=== PATIENT | female | born 1955 | race Caucasian/White ===

== ENCOUNTER 2019-09-17 10:13 | Outpatient (CLI) | payer BC, SELFPAY ==
--- NOTE | 2019-09-17 10:19 | ECG_ITS ---
Measurements Intervals [place] Rate: 77 P: 32 OR: 137 QRS: -30 QRSD: 80 T: 13 QT: 364 QTc: 414 Interpretive Statements SINUS RHYTHM VOLTAGE CRITERIA FOR LVH POOR R WAVE PROGRESSION, ANTERIOR LEADS BORDERLINE T WAVE ABNORMALITY- ANTERIOR LEADS BORDERLINE ECG Electronically Signed On 09-17-2019 16:19:53 CDT by Juan Carlos Dinh D.O.
[2019-09-17 10:51] LABS: Blood Urea Nitrogen 17 mg/dL (7-17); Calcium 9.5 mg/dL (8.4-10.2); Carbon Dioxide 32 mmol/L (22-30); Chloride 101 mmol/L (98-107); Estimated Glomerular Filt Rate > 60; Glucose 101 mg/dL (65-105); Sodium 140 mmol/L (137-145)
== END 2019-09-17 10:14 | disposition home or self-care (01) ==
PROVIDERS: Anesthesiology; PCP Internal Medicine; Visit Provider Obstetrics & Gynecology
DX: Z01.818 Encounter for other preprocedural examination (principal); N95.0 Postmenopausal bleeding; I10 Essential (primary) hypertension
CPT/HCPCS: 36415; 80048; 86850; 86900; 86901; 93005

== ENCOUNTER 2019-09-20 01:30 | Outpatient (CLI) | payer BC, SELFPAY ==
[2019-09-20 16:16] LABS: SARS-CoV-2 RNA PCR Negative
== END 2019-09-20 01:31 | disposition home or self-care (01) ==
LOC: ANHCOVIDDT 01:31
PROVIDERS: PCP Internal Medicine; Visit Provider Obstetrics & Gynecology
DX: Z01.812 Encounter for preprocedural laboratory examination (principal); Z11.59 Encounter for screening for other viral diseases
CPT/HCPCS: 87635; C9803; U0003

== ENCOUNTER 2019-09-22 01:14 | Day surgery (SDC) | payer BC, SELFPAY ==
[2019-09-10 11:19] VITALS: BMI 31.1
--- NOTE | 2019-09-21 11:09 | WPDANESEPPF ---
Anes - Initial Pre Proc Eval Procedure: Operation Date: 09/22/19 12:00 Proposed Procedures p Robotic Assisted Total Laparoscopic Hysterectomy With Bilateral Salpingo-Oophorectomy - Eduar Jarrell MD Date/Time: 09/21/19 11:09 Surgeon: Eduar Jarrell MD Pre Op Diagnosis: Post Menopausal Bleeding Patient Data Age: 64 Gender: F Height: 1.57 m Weight: 77.11 kg Allergies Allergy/AdvReac Type Severity Reaction Status Date / Time No Known Allergies Allergy Mild Unverified 09/10/19 11:20 Home Medications Medication Instructions Recorded Confirmed Type Ca carb-D3-mag [id number] 1 tablet PO DAILY 09/10/19 09/10/19 History [Caltrate + D3 Plus Minerals] armodafinil 150 mg PO DAILY 09/10/19 09/10/19 History atorvastatin 10 mg PO DAILY 09/10/19 09/10/19 History telmisartan-hydrochlorothiazid 1 tablet PO DAILY 09/10/19 09/10/19 History Patient hx anesthesia problems: none Family hx anesthesia problems: none [facility] Past Medical History Medical History (Updated 09/21/19 @ 11:09 by Marcial Spence DO) Hyperlipidemia Hypertension Social History Social History Smoking status: Never smoker Spiritual care concerns: No Anes - Eval Final PreProcedure Day of Procedure 09/21/19 11:09 Patient weight: obese Heart: regular rate and rhythm Lungs: clear to auscultation and normal air movement Airway: Mallampati scale class III Neurological: alert and oriented Last oral intake: >/= 8 hours ASA classification: III Emergent: no Anesthetic plan: proceed Anesthesia type and monitoring: general ETT and standard monitoring Informed Consent: The patient's anesthetic plan and its attendant risks and benefits were discussed with the patient/family/POA. Questions were solicited and answers provided to the satisfaction of the patient/family/POA.
[2019-09-22] VITALS (15 sets, daily range): BP systolic 87–129; BP diastolic 52–75; PULSE 56–98; RESP 14–20; TEMP 36.2–36.8; O2SAT 89–100
[2019-09-22] MEDS: ACETAMINOPHEN 500 MG TABLET 1000 MG PO (10:48)
[2019-09-22] MEDS: LACTATED RINGERS 1,000 ML 30 ML IV CONT ×2 (11:01→14:37)
[2019-09-22] MEDS: KETOROLAC 15 MG/ML VIAL (*BKC) IV PUSH (11:03)
--- NOTE | 2019-09-22 11:55 | PM.IMHP ---
H&P: HPI History of Present Illness Date/Time: 09/22/19 11:55 Chief complaint: Post Menopausal Bleeding Narrative: Lindy Gonzalez is a 64 year old female Presents for definitive therapy of fibroid uterus and postmenopausal bleeding. Has had multiple D and C's over the past few years to irregular vaginal bleeding none have shown any abnormalities though of the cavity has been atrophic and irregular. Ultrasound has revealed fibroid uterus and therefore she does desire to proceed with the hysterectomy. Prior history of a midline incision and Pfannenstiel incision for 2 previous deliveries. We have discussed that these may cause issues with of visualization and may cause laparotomy but this point will attempt of laparoscopic treatment and surgical modality. Review of Systems Review of Systems: All systems reviewed & are unremarkable except as noted in HPI and below PMFSH Past Medical History Medical History Hyperlipidemia Hypertension Social History Social History Smoking status: Never smoker Spiritual care concerns: No Meds Home Medications and Allergies Home Medications Medication Instructions Recorded Confirmed Type Ca carb-D3-mag [id number]-Zn 1 tablet PO DAILY 09/10/19 09/22/19 History [Caltrate + D3 Plus Minerals] armodafinil 150 mg PO DAILY 09/10/19 09/22/19 History atorvastatin 10 mg PO DAILY 09/10/19 09/22/19 History telmisartan-hydrochlorothiazid 1 tablet PO DAILY 09/10/19 09/22/19 History Allergies Allergy/AdvReac Type Severity Reaction Status Date / Time No Known Allergies Allergy Mild Unverified 09/10/19 11:20 Vital Signs Vital Signs - 24 hr 09/22/19 11:13 Temperature 36.7 C Pulse Rate 72 Blood Pressure 129/75 Pulse Oximetry 98 Exam Const: General: no acute distress Resp: Auscultation: clear to auscultation bilaterally Cardio: Rate: regular rate Rhythm: regular rhythm GI: GI Palp: Yes Soft to palpation : Other: Uterus slightly enlarged nontender Assessment and Plan Assessment and plan (1) Fibroid uterus: Code(s): D25.9 - Leiomyoma of uterus, unspecified Status: Acute (2) Postmenopausal bleeding: Code(s): N95.0 - Postmenopausal bleeding Status: Acute Additional Plan proceed with robotic assisted laparoscopic hysterectomy with bilateral salpingo-oophorectomies. Possibility of open laparotomy has already been discussed with the patient as well.
[2019-09-22] MEDS: ceFAZolin 2 GM/D5W 50 ML 2 GM/50 ML BAG IVPB (13:22)
--- NOTE | 2019-09-22 14:09 | PM.OP ---
Procedure Note - Brief Procedure Note - Brief Date of procedure: 09/22/19 Pre-op diagnosis: Post Menopausal Bleeding Uterine fibroids Post-op diagnosis: same Procedure performed: 1. Adhesiolysis 2. Robotic assisted laparoscopic hysterectomy with bilateral salpingo oophorectomy Description of procedure: patient prepped and draped usual manner for this procedure. Cervical instruments were placed uterine mobility in tension was then placed to the abdomen. Abdominal trocars were placed under direct visualization attached to the Maylin system and instruments were placed. At this point the cervical instruments did not appear to be in the uterine cavity so these were replaced and were found to be in the cavity. The bladder was then backfilled with 200cc of dye colored fluid to delineate the edges anatomically due to the extensive adhesions in this area. Also abdominal omental adhesions to the anterior abdominal wall were taken down sharply and bluntly. At this point bilaterally the infundibulopelvic ligaments were cauterized cut to take the blood supply to the ovaries away. Round ligament cauterized and cut bilaterally in the posterior leaf of the broad ligament was dissected. Bladder was then dissected off the anterior portion of the cervix with the bladder both filled and emptied. Once this was completely taken down and the bladder was again filled with 200cc of diet filled fluid with no spillage noted. After the uterine vessels are cauterized the cervix was then incised circumferentially and the uterus and tubes and ovaries were delivered into into the vagina. Cuff was closed using V lock suture from right of midline in the left angle to the midline. Irrigation was undertaken and there was no bleeding. The rest of placed empirically over the incision of the vaginal cuff. Gas was allowed to escape incisions proximally using 4 Monocryl and the patient was sent to recovery room in stable condition. Anesthesia: GETA Surgeon: Eduar Jarrell MD Estimated blood loss (mL): 10 Drains: No Packing: No Pathology: yes Complications: No immediate complications Condition: stable Disposition: PACU Findings: 1. Small fibroid uterus. 2. Omental adhesions to the anterior abdominal wall. 3. Dense adhesions of the Bladder to the anterior portion of the cervix.
--- NOTE | 2019-09-22 15:51 | PC.NURSE ---
Pt transferred to room 292 per stretcher. Alert and oriented x3.
[2019-09-22] MEDS: DEXTROSE 5%/LACTATED RINGERS 1,000 ML 125 ML IV CONT (16:17)
[2019-09-22] MEDS: KETOROLAC 30 MG/ML VIAL (*BKC) IV PUSH (16:17)
[2019-09-22] MEDS: SIMETHICONE 80 MG TAB.CHEW PO (17:27)
[2019-09-23] VITALS: BP 104/62; PULSE 57; RESP 14; TEMP 37; O2SAT 97
[2019-09-23] MEDS: KETOROLAC 30 MG/ML VIAL (*BKC) IV PUSH
[2019-09-23 04:45] VITALS: BP 93/50; PULSE 64; RESP 13; TEMP 37.4; O2SAT 96
[2019-09-23 05:18] LABS: Basophils Percent Auto 0.3 % (0.2-1.2); Eosinophils Percent Auto 0.1 % (0-4.4); Hematocrit 38.4 % (37.0-47.0); Hemoglobin 12.7 g/dL (12.0-15.0); Immature Granulocyte Absolute 0.06 K/mm3 (0.00-0.031); Immature Granulocyte Percent A 0.5 % (0-0.5); Lymphocytes Absolute Auto 1.51 K/mm3 (0.9-3.2); Lymphocytes Percent Auto 13.5 % (18.3-44.2); Mean Corpuscular HGB Conc 33.1 g/dl (32-36); Mean Corpuscular Hemoglobin 32.3 pg (26-34); Mean Corpuscular Volume 97.7 fl (80-100); Mean Platelet Volume 10.7 fl (7.4-10.4); Monocytes Absolute Auto 0.7 K/mm3 (0.1-0.6); Monocytes Percent Auto 6.4 % (2.6-8.5); Neutrophils Absolute Auto 8.9 K/mm3 (1.3-6.7); Neutrophils Percent Auto 79.2 % (45.5-73.1); Platelet Count Result 196 k/mm3 (150-375); Red Blood Count 3.93 M/mm3 (4.2-5.4); Red Cell Distribution Width 12.9 % (11.5-14.5); White Blood Count 11.2 K/mm3 (4.5-10.0)
[2019-09-23 07:45] VITALS: BP 96/55; PULSE 66; RESP 16; TEMP 37.3; O2SAT 97
[2019-09-23] MEDS: IBUPROFEN 600 MG TABLET PO (09:30)
--- NOTE | 2019-09-23 10:14 | P.PNAN_ITS ---
Anes - Prog Note Post-Op Date/Time: 09/23/19 10:14 Cardiovascular status: normal Respiratory status: normal Airway patency: baseline Mental status: baseline Post-Op hydration status: normal Vital Signs: Last Vital Signs Temp 37.3 C 09/23/19 07:45 Pulse 66 09/23/19 07:45 Resp 16 09/23/19 07:45 BP 96/55 L 09/23/19 07:45 Pulse Ox 97 09/23/19 07:45 I/O: Intake & Output 09/22/19 09/23/19 09/23/19 23:59 07:59 15:59 Intake Total 1200 Output Total 280 150 Balance 920 -150 Laboratory Tests 09/23/19 04:54 09/23/19 04:54 WBC 11.2 H RBC 3.93 L Hgb 12.7 Hct 38.4 MCV 97.7 MCH 32.3 MCHC 33.1 RDW 12.9 Plt Count 196 MPV 10.7 H Immature Gran % (Auto) 0.5 Neut % (Auto) 79.2 H Lymph % (Auto) 13.5 L [place] % (Auto) 6.4 Eos % (Auto) 0.1 Baso % (Auto) 0.3 Lymph # (Auto) 1.51 [place] # (Auto) 0.7 H Eos # (Auto) 0.0 Baso # (Auto) 0.0 Abs Immat Gran (auto) 0.06 H Absolute Neuts (auto) 8.9 H Absolute Nucleated RBC 0.0 Nucleated RBC % 0.0 Post-procedural complaints: none Patient Feedback: Patient satisfied with anesthetic care.
== END 2019-09-23 10:26 | disposition home or self-care (01) ==
LOC: ANHSURGERY 09:45 → ANHOB2 09-23 09:00
PROVIDERS: PCP Internal Medicine; Visit Provider Obstetrics & Gynecology
PROC: (CPT 58571; principal; 2019-09-22 12:00)
DX: N95.0 Postmenopausal bleeding (principal); N73.6 Female pelvic peritoneal adhesions (postinfective); D25.0 Submucous leiomyoma of uterus; I10 Essential (primary) hypertension; E78.5 Hyperlipidemia, unspecified; E66.9 Obesity, unspecified; Z68.31 Body mass index [BMI] 31.0-31.9, adult
CPT/HCPCS: 58571; S2900; 36415; 85025; 88307; 99199; A9270; J0690; J1100; J1170; J1885; J2250; J2370; J2405; J2704; J3010; J7030; J7120; J7121; Q9968

== ENCOUNTER 2021-11-23 00:14 | Day surgery (SDC) | payer BC, SELFPAY ==
[2021-11-07 08:08] VITALS: BMI 32.0
[2021-11-23 06:55] VITALS: BP 144/89; PULSE 79; RESP 30; TEMP 36.6; O2SAT 100; BMI 32.5
[2021-11-23] MEDS: LACTATED RINGERS 1,000 ML 150 ML IV CONT (07:06)
--- NOTE | 2021-11-23 07:24 | PM.HPGS ---
History of Present Illness History of Present Illness Consent: Risks, benefits, and alternatives have been discussed and questions answered. Patient agrees to proceed with procedure. Chief complaint: neoplasm screening Narrative: Lindy Gonzalez is a 66 year old female referred for colon cancer screening. Her last colonoscopy was 10 years ago. Review of Systems Review of Systems: All systems reviewed & are unremarkable except as noted in HPI and below PMFSH Past Medical History Medical History (Updated 11/23/21 @ 07:25 by Thomas Nichols MD) Hyperlipidemia Hypertension Social History Social History Smoking status: Never smoker Alcohol intake: current Drinks per week: 1 Substance use type: does not use Living arrangements: with family Spiritual care concerns: No Meds Home Medications and Allergies Home Medications Medication Instructions Recorded Confirmed Type armodafinil 150 mg tablet 150 mg PO DAILY 09/10/19 11/23/21 History atorvastatin 10 mg tablet 10 mg PO DAILY 09/10/19 11/23/21 History calcium carb 300 mg-D3 800 1 tablet PO DAILY 09/10/19 11/23/21 History unit-mag ox 25 mg-copy chaser 0.5 mg-pedro luis-Zn tablet (Caltrate + D3 Plus Minerals) telmisartan 80 1 tablet PO DAILY 09/10/19 11/23/21 History mg-hydrochlorothiazide 25 mg tablet ibuprofen 600 mg tablet 600 mg PO Q6H PRN Cramping #30 tabs 09/23/19 11/23/21 Rx Allergies Allergy/AdvReac Type Severity Reaction Status Date / Time No Known Allergies Allergy Mild Verified 11/23/21 06:54 Vital Signs Vital Signs - 24 hr 11/23/21 06:55 Temperature 36.6 C Pulse Rate 79 Respiratory Rate 30 H Blood Pressure 144/89 H Pulse Oximetry 100 Oxygen Delivery Room Air Exam Const: General: alert Orientation/consciousness: patient oriented x3 Resp: Auscultation: clear to auscultation bilaterally Cardio: Rhythm: regular rhythm GI: GI Palp: Yes Soft to palpation and No Tenderness to palpation present (GI) Neuro: General: patient oriented x3 Assessment and Plan Assessment and plan (1) Colon cancer screening: Code(s): Z12.11 - Encounter for screening for malignant neoplasm of colon Status: Acute Assessment and Plan: Colonoscopy with possible biopsy or polypectomy or cautery or injection of substances.
--- NOTE | 2021-11-23 07:42 | WPDANESEPPF ---
Anes - Initial Pre Proc Eval Procedure: Operation Date: 11/23/21 08:00 Proposed Procedures p Screening Colonoscopy - Thomas Nichols MD Date/Time: 11/23/21 07:42 Surgeon: Thomas Nichols MD Pre Op Diagnosis: neoplasm screening Patient Data Age: 66 Gender: F Height: 1.6 m Weight: 83.5 kg Last Vital Signs Temp 97.9 F 11/23/21 06:55 Pulse 79 11/23/21 06:55 Resp 30 H 11/23/21 06:55 BP 144/89 H 11/23/21 06:55 Pulse Ox 100 11/23/21 06:55 O2 Del Method Room Air 11/23/21 06:55 Allergies Allergy/AdvReac Type Severity Reaction Status Date / Time No Known Allergies Allergy Mild Verified 11/23/21 06:54 Home Medications Medication Instructions Recorded Confirmed Type armodafinil 150 mg tablet 150 mg PO DAILY 09/10/19 11/23/21 History atorvastatin 10 mg tablet 10 mg PO DAILY 09/10/19 11/23/21 History calcium carb 300 mg-D3 800 1 tablet PO DAILY 09/10/19 11/23/21 History unit-mag ox 25 mg-epic kaleidoscope analyst 0.5 mg-pedro luis-Zn tablet (Caltrate + D3 Plus Minerals) telmisartan 80 1 tablet PO DAILY 09/10/19 11/23/21 History mg-hydrochlorothiazide 25 mg tablet ibuprofen 600 mg tablet 600 mg PO Q6H PRN Cramping #30 tabs 09/23/19 11/23/21 Rx Patient hx anesthesia problems: none Family hx anesthesia problems: none Results Review: All pre-operative results and documents have been reviewed as part of the pre-operative evaluation. [facility] Past Medical History Medical History (Updated 11/23/21 @ 07:25 by Thomas Nichols MD) Hyperlipidemia Hypertension Social History Social History Smoking status: Never smoker Alcohol intake: current Drinks per week: 1 Substance use type: does not use Living arrangements: with family Spiritual care concerns: No Anes - Eval Final PreProcedure Day of Procedure 11/23/21 07:42 Patient weight: obese Heart: regular rate and rhythm Lungs: clear to auscultation Airway: Mallampati scale class II Neurological: alert and oriented Last oral intake: >/= 8 hours ASA classification: III Emergent: no Anesthetic plan: proceed Anesthesia type and monitoring: general GIVS and standard monitoring Results Review: All pre-operative results and documents have been reviewed as part of the pre-operative evaluation. Informed Consent: The patient's anesthetic plan and its attendant risks and benefits were discussed with the patient/family/POA. Questions were solicited and answers provided to the satisfaction of the patient/family/POA.
[2021-11-23 08:10] VITALS: BP 114/71; PULSE 67; RESP 30; O2SAT 96
[2021-11-23 08:20] VITALS: BP 107/71; PULSE 69; RESP 30; O2SAT 100
[2021-11-23 08:26] VITALS: BP 124/80; PULSE 71; RESP 30; O2SAT 99
== END 2021-11-23 08:38 | disposition home or self-care (01) ==
PROVIDERS: PCP Internal Medicine; Visit Provider Internal Medicine Gastroenterology
PROC: 0DJD8ZZ Inspection of Lower Intestinal Tract, Via Natural or Artificial Opening Endoscopic (ICD-10-PCS; CPT 45378; principal; 2021-11-23 08:00)
DX: Z12.11 Encounter for screening for malignant neoplasm of colon (principal); D12.5 Benign neoplasm of sigmoid colon; K64.8 Other hemorrhoids; K57.30 Diverticulosis of large intestine without perforation or abscess without bleeding; E78.5 Hyperlipidemia, unspecified; I10 Essential (primary) hypertension; E66.9 Obesity, unspecified; Z68.32 Body mass index [BMI] 32.0-32.9, adult
CPT/HCPCS: 45385; 88305; J2704; J7120

== ENCOUNTER 2023-12-29 00:51 | Day surgery (SDC) | payer MEDICARE, SELFPAY ==
[2023-12-17 08:50] VITALS: BMI 34.7
[2023-12-29 09:31] VITALS: BP 158/75; PULSE 80; RESP 16; TEMP 36.3; O2SAT 98; BMI 35.0
[2023-12-29] MEDS: LACTATED RINGERS 1,000 ML 150 ML IV CONT (09:37)
--- NOTE | 2023-12-29 10:47 | PM.IMHP ---
H&P: HPI History of Present Illness Date/Time: 12/29/23 10:47 Chief Complaint: Dysphagia Narrative: the patient has been suffering from dysphagia to solids and liquids for the past 3 years. There is no unintentional weight loss, chest pain or Regurgitation. Sometimes she feels like her own saliva is difficult to swallow. Review of Systems Review of Systems: All systems reviewed & are unremarkable except as noted in HPI and below PMFSH Past Medical History Medical History (Updated 12/29/23 @ 10:48 by Van Leroy MD) Bladder cancer Frequent headaches History of endometrial biopsy 05/19/03 hscope EMB--proliferative endometrium, suggestive of endometrial polyp Hyperlipidemia Hypertension Narcolepsy Screening mammogram for high-risk patient Sleep apnea Surgical History Surgical History History of 05/19/83 primary c/s 08/17/88 repeat c/s History of cholecystectomy History of dilation and curettage 03/20/17 hscope d&c--postmenopausal bleeding, atrophic endometrial cavity, endometrial fibroids 12/24/18 hscope d&c--postmenopausal bleeding History of elbow surgery (07/18/08) (R) elbow tendonitis History of endometrial ablation 07/06/03 hscope Novasure endometrial ablation--menometrorrhagia, dysmenorrhea, uterine fibroids History of robot-assisted laparoscopic hysterectomy (09/22/19) RA TL w/BSO--postmenopausal bleeding Family History Family History Sibling Heart disease Sister Seizure disorder brother Father Diabetes mellitus Hypertension Mother Kidney disease Grandparent Cerebrovascular accident maternal grandmother Social History Social History (Updated 01/27/23 @ 08:32 by GARRICK Rascon) Smoking status: Never smoker Alcohol intake: current Alcohol use details: 2 month Substance use: never Substance use type: does not use Lack of Transportation: No Lack of Food: Never True Current Housing: I Have Housing Concerned About Future Housing: No Difficulty Paying Gas/Electric Bills: No Difficulty Paying for Meds: No Currently Unemployed: No Education: Associate Degree Difficulty w/ Childcare or Family Care: No Living arrangements: with family Additional living arrangements comments: 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 Gender identity (if verbalized by the patient): Female Sexual Orientation (if Verbalized by the Patient): Straight or Heterosexual Spiritual care concerns: No Meds Home Medications and Allergies Home Medications Medication Instructions Recorded Confirmed Type calcium 300 mg-D3 20 mcg-magnesium 1 tablet PO DAILY 09/10/19 12/29/23 History 25 mg-coppr 0.5 [id number] tablet (Caltrate-D3 Plus Minerals) telmisartan 80 1 tablet PO DAILY 09/10/19 12/29/23 History mg-hydrochlorothiazide 25 mg tablet omeprazole 40 mg capsule,delayed 40 mg PO DAILY 01/27/23 12/29/23 History release atorvastatin 20 mg tablet 20 mg PO DAILY 12/17/23 12/29/23 History Allergies Allergy/AdvReac Type Severity Reaction Status Date / Time No Known Allergies Allergy Mild Verified 12/29/23 09:29 Vital Signs Vital Signs - 24 hr 12/29/23 09:31 Temperature 97.3 F L Pulse Rate 80 Respiratory Rate 16 Blood Pressure 158/75 H Pulse Oximetry 98 Oxygen Delivery Room Air Exam Const: General: cooperative and healthy appearing Resp: Effort & Inspection: normal respiratory effort and able to speak in complete sentences Auscultation: clear to auscultation bilaterally Cardio: Rate: regular rate Rhythm: regular rhythm GI: Inspection: normal to inspection GI Palp: No No hepatosplenomegaly present Auscultation: normal bowel sounds Rectal Exam: deferred Skin: General skin exam: normal color Psych: Appearance: grossly normal Mental Status: mental status grossly normal Assessment and Plan Assessment and plan (1) Dysphagia: Code(s): R13.10 - Dysphagia, unspecified Status: Acute Assessment and Plan: The patient is deemed a good candidate for the procedure. Consent signed. Will proceed.
--- NOTE | 2023-12-29 10:50 | WPDANESEPPF ---
Anes - Initial Pre Proc Eval Procedure: Operation Date: 12/29/23 11:00 Proposed Procedures p Esophagogastroduodenoscopy - Van Leroy MD Date/Time: 12/29/23 10:50 Surgeon: Van Leroy MD Pre Op Diagnosis: dysphagia Pre Op Diagnosis: dysphagia Patient Data Age: 68 Gender: F Height: 1.57 m Weight: 86.9 kg Last Vital Signs Temp 36.3 C L 12/29/23 09:31 Pulse 80 12/29/23 09:31 Resp 16 12/29/23 09:31 BP 158/75 H 12/29/23 09:31 Pulse Ox 98 12/29/23 09:31 O2 Del Method Room Air 12/29/23 09:31 Allergies Allergy/AdvReac Type Severity Reaction Status Date / Time No Known Allergies Allergy Mild Verified 12/29/23 09:29 Home Medications Medication Instructions Recorded Confirmed Type calcium 300 mg-D3 20 mcg-magnesium 1 tablet PO DAILY 09/10/19 12/29/23 History 25 mg-coppr 0.5 [id number] tablet (Caltrate-D3 Plus Minerals) telmisartan 80 1 tablet PO DAILY 09/10/19 12/29/23 History mg-hydrochlorothiazide 25 mg tablet omeprazole 40 mg capsule,delayed 40 mg PO DAILY 01/27/23 12/29/23 History release atorvastatin 20 mg tablet 20 mg PO DAILY 12/17/23 12/29/23 History Patient hx anesthesia problems: none Family hx anesthesia problems: none Results Review: All pre-operative results and documents have been reviewed as part of the pre-operative evaluation. COUNTS INCLUDE 234 BEDS AT THE [facility] Past Medical History Medical History Bladder cancer Frequent headaches History of endometrial biopsy 05/19/03 hscope EMB--proliferative endometrium, suggestive of endometrial polyp Hyperlipidemia Hypertension Narcolepsy Screening mammogram for high-risk patient Sleep apnea Surgical History Surgical History History of 05/19/83 primary c/s 08/17/88 repeat c/s History of cholecystectomy History of dilation and curettage 03/20/17 hscope d&c--postmenopausal bleeding, atrophic endometrial cavity, endometrial fibroids 12/24/18 hscope d&c--postmenopausal bleeding History of elbow surgery (07/18/08) (R) elbow tendonitis History of endometrial ablation 07/06/03 hscope Novasure endometrial ablation--menometrorrhagia, dysmenorrhea, uterine fibroids History of robot-assisted laparoscopic hysterectomy (09/22/19) RA TLH w/BSO--postmenopausal bleeding Family History Family History Sibling Heart disease Sister Seizure disorder brother Father Diabetes mellitus Hypertension Mother Kidney disease Grandparent Cerebrovascular accident maternal grandmother Social History Social History Smoking status: Never smoker Alcohol intake: current Alcohol use details: 2 month Substance use: never Substance use type: does not use Lack of Transportation: No Lack of Food: Never True Current Housing: I Have Housing Concerned About Future Housing: No Difficulty Paying Gas/Electric Bills: No Difficulty Paying for Meds: No Currently Unemployed: No Education: Associate Degree Difficulty w/ Childcare or Family Care: No Living arrangements: with family Additional living arrangements comments: 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 Gender identity (if verbalized by the patient): Female Sexual Orientation (if Verbalized by the Patient): Straight or Heterosexual Spiritual care concerns: No Anes - Eval Final PreProcedure Day of Procedure 12/29/23 10:50 Patient weight: obese Heart: regular rate and rhythm Lungs: clear to auscultation Airway: Mallampati scale class III Neurological: alert and oriented Last oral intake: >/= 8 hours ASA classification: III Emergent: no Anesthetic plan: proceed Anesthesia type and monitoring: general GIVS and standard monitoring Results Review: All pre-operative results and documents have been reviewed as part of the pre-operative evaluation. Informed Consent: The patient's anesthetic plan and its attendant risks and benefits were discussed with the patient/family/POA. Questions were solicited and answers provided to the satisfaction of the patient/family/POA.
[2023-12-29 11:12] VITALS: BP 120/73; PULSE 76; RESP 24; O2SAT 100
[2023-12-29 11:22] VITALS: BP 115/68; PULSE 74; RESP 20; O2SAT 100
[2023-12-29 11:32] VITALS: BP 129/76; PULSE 68; RESP 22; O2SAT 100
== END 2023-12-29 11:40 | disposition home or self-care (01) ==
PROVIDERS: PCP Internal Medicine; Visit Provider Internal Medicine Gastroenterology
PROC: 0DJ08ZZ Inspection of Upper Intestinal Tract, Via Natural or Artificial Opening Endoscopic (ICD-10-PCS; CPT 43235; principal; 2023-12-29 11:00)
DX: K22.2 Esophageal obstruction (principal); K29.30 Chronic superficial gastritis without bleeding; K21.00 Gastro-esophageal reflux disease with esophagitis, without bleeding; I10 Essential (primary) hypertension; E78.5 Hyperlipidemia, unspecified; G47.30 Sleep apnea, unspecified; Z85.51 Personal history of malignant neoplasm of bladder; E66.9 Obesity, unspecified; Z68.35 Body mass index [BMI] 35.0-35.9, adult
CPT/HCPCS: 43450; 43239; 88305; J2003; J2704; J7120

== ENCOUNTER 2024-04-14 09:45 | Outpatient (CLI) | payer MEDICARE, SELFPAY ==
--- NOTE | 2024-04-14 10:10 | ECG_ITS ---
Test Date: 2024-04-14 10:25:53 Measurements Intervals [place] Rate: 82 P: 33 VA: 139 QRS: -28 QRSD: 74 T: 52 QT: 355 QTc: 415 Interpretive Statements SINUS RHYTHM LOW QRS VOLTAGE IN PRECORDIAL LEADS POOR R WAVE PROGRESSION CONSIDER INFERIOR INFARCT, AGE INDETERMINATE BORDERLINE T WAVE ABNORMALITY- ANTERIOR LEADS BASELINE ARTIFACT- I, II, III, AVR, AVL, AVF, V1-V3 ABNORMAL ECG No previous ECG available for comparison Electronically Signed On 04-14-2024 10:29:58 [employer] by Juan Carlos Dinh D.O.
--- OUTSIDE RECORDS SUMMARY | 2024-04-14 10:55 | XMS_ITS | CONTINUITY OF CARE DOCUMENT ---
Author Name kiley cao Address Unknown Organization [facility] Address [address] [place] [address] Phone [phone] Care Team Providers Care [facility] Name Role Phone JOSH MO, ANNAMARIA Unavailable TEDDY MO, ELLIOT Pearson Unavailable INSURANCE PROVIDERS Payer name Policy type / Coverage type [place] red republican ID [facility] Blue [facility] [id number]
--- OUTSIDE RECORDS SUMMARY | 2024-04-14 10:55 | XMS_ITS | Data Portability ---
Author Organization [facility] Address [address] [address] Assessment No assessment recorded. Plan of Treatment Reminders Order Date Submit Date Provider Last Modified By Organization Details Last Modified Time Details Appointments None recorded. Lab None recorded. Referral None recorded. Procedures None recorded. Surgeries None recorded. Imaging None recorded. Medication Orders hydroxyzine HCl 25 mg tablet 2020 021 QUINN Not available 11:29:09 terbinafine HCl 250 mg tablet 2020 021 QUINN Not available 11:29:06 clotrimazol e 1 % topical cream 2020 021 QUINN Not available 11:29:03 Patient TargetsNo targets recorded. Patient InstructionsNo instructions recorded. Reason for Referral None Reported. Medical Equipment None Reported. Medications Name Sig Start Date Stop Date Status Note LastModified by Organization Details LastModified Time prednisone 10 mg tablet active Not Available Not Available Not Available atorvastatin 20 mg tablet active Not Available Not Available Not Available meloxicam 15 mg tablet TAKE 1 TABLET BY MOUTH EVERY DAY WITH MEALS FOR 21 DAYS active Not Available Not Available No t Available phenazopyrid ine 200 mg tablet TAKE 1 TABLET BY MOUTH THREE TIMES DAILY NEEDED active Not Available Not Available No t Available tramadol 50 mg tablet TAKE 1 TABLET BY MOUTH EVERY 6 HOURS NEEDED active Not Available Not Available No t Available terbinafine HCl 250 mg tablet Take 1 tablet every day by oral route as directed for 15 days. active Not Available Not Available No t Available hydroxyzine HCl 25 mg tablet Take 2 tablets every day by oral route as directed for 5 days. active Not Available Not Available Not Available ergocalcifer ol (vitamin D2) 1,250 mcg (50,000 unit) capsule active Not Available Not Available Not Available clotrimazole 1 % topical cream Apply 1 application twice a day by topical route as directed for 10 days. 2020 active Not Available Not Available Not Avai lable telmisartan 80 mg-hydrochlo rothiazide 25 mg tablet active Not Available Not Available Not Available armodafinil 150 mg tablet active Not Available Not Available Not Available Vitals Date Recorded Body height Heart rate Respiratory rate Body temperature Body mass index (BMI) Body weight Oxygen saturation Oxygen saturation in Arterial blood by Pulse oximetry Heart rate Systolic blood pressure Diastolic blood pressure Provider Name and Address Organization Details Last Updated DateTime 157.48 cm 88 /min 18 /min 98 [degF] 29.6 kg/m2 21565.9 6 g 99 % 99 % 88 /min 128 mm[Hg] 88 mm[Hg] Angel Henry DO [address],[facility] [address], [address] [place] - [facility] 11:41:54 Social History Question Answer Notes LastModified by Organizat ion Details LastModified Time What Is Your Level Of Alcohol Consumption? None [email or web address] Information not available 09/27/2020 What Type Of Diet Are You Following? Regular [email or web address] Information not available 09/27/2020 How Many Children Do You Have? 0 [email or web address] Information not available 09/27/2020 Do You Or Have You Ever Used Smokeless Tobacco? [id number] [email or web address] Information not available 09/27/2020 Sex: Unknown Functional Status None recorded. Mental Status None recorded. Family History Nothing Reported. Medical History No medical history recorded. Gynecological HistoryNo gynecological history recorded. Obstetrics History GPAL:G 0 P 0 0 0 0 Past Encounters Encounter ID Performer Location Encounter Start Date Encounter Closed Date Diagnosis/Indication Diagnosis SNOMED-CT Code Diagnosis ICD10 Code Diagnosis Note [id number] DO [facility] [address] [facility] [place] [address] 09/27/2020 11:14:09 10/17/2020 00:46:47 Tinea corporis 67713249 B35.4 Pruritic rash 78572257 L 28.2 Health Concerns Section Related Observation LastModified by Organization Detai ls LastModified Time None Recorded Concern Status LastModified by Organization Details LastModified Time None Recorded Advance Directives Directive None Recorded Payers Encounter Date Sequence Insurance Name Policy Number Policy Vásquez Covered Member ID Vásquez Member ID Guarantor Name 09/27/2020 1 [facility] [employer] ([place]) [id number] G Lindy Hustedt [id number] AB Lindy Hustedt Notes Date Note Type Note Provider Name and Address Organization Details Recorded Time 09/27/2020 text/html General Rash/Ski n LesionReported bypatient.Location:[facility] Quality:itchy;painfu l;red;multiple Severity:moderate; worsening Duration:has noted for <1 week Onset/Timing:gradual onset Context:no new detergents or skin products; no one else with similar rash;scratching Alleviating factors:nothing gives relief Aggravating factors:nothing makes it worse Associated Symptoms:no fever; no cold symptoms; no nausea; no vomiting; no diarrhea; no urinary symptoms Angel Henry, DO [address], [place], [address], [facility] - [facility] 09/27/2020 11:48:52 OBGyn Episode No OBEpisode recorded.
--- OUTSIDE RECORDS SUMMARY | 2024-04-14 10:55 | XMS_ITS | Patient Health Summary ---
Author Organization [facility] Address [address] [place] [address] Care Team Providers Care Tobacco Sampler Name Role Phone Akil Jara MD Primary Care Provider Note from [facility],non-owned Affiliates and Associated Physician Practices is amultiple site organization consisting of ambulatory clinics and hospital sitesin [place], [place] and [place]. This disclosure is being madepursuant to the Care Everywhere program and may not contain all information available regarding this patient. Last updated 17.[facility] Social History Tobacco Use Types Packs/Day Years Used Date Smoking Tobacco: Never Alcohol Use Standard Drinks/Week Comments Yes 0 (1 standard drink = 0.6 oz pur e alcohol) Sex and Gender Information Value Date Recorded Sex Assigned at Not on file Gender Identity Not on file Sexual Orientation Not on file Last Filed Vital Signs Vital Sign Reading Time Taken Comments Blood Pressure 174/99 05/13/2013 11:15 AM CDT Pulse 63 05/13/2013 11:15 AM CDT Temperature 37.2 C (98.9 F) 05/13/2013 9:29 AM CDT Respiratory Rate 19 05/13/2013 11:15 AM CDT Oxygen Saturation 97% 05/13/2013 11:15 AM CDT Inhaled Oxygen Concentration - - Weight 72.6 kg (160 lb) 05/13/2013 9:29 AM CDT Height 160 cm (5' 3 ) 05/13/2013 9:29 AM CDT Body Mass Index 28.34 05/13/2013 9:29 AM CDT Procedures * MRI ANGIO BRAIN ARTERIAL WO CONT(Performed 05/11/2013) * MRI BRAIN WO CONTRAST(Performed 05/11/2013) Results * MRI BRAIN WO CONTRAST (05/11/2013 1:53 PM CDT) Anatomical Region Laterality Modality Head Other Impressions 05/11/2013 4:58 PM CDT IMPRESSION: 1. No definite findings to explain loss of consciousness. Specifically no evidence of anoxic brain injury. 2. Fullness in the suprasellar cistern with sagging of the brainstem and cerebellar tonsils. This finding has been described in the setting of intracranial hypotension, correlate clinically with recent lumbar puncture and the presence of postural headaches. Alternatively, this patient could simply have an incidental Chiari one malformation. 3. Normal examination of the pilot point of P[place]. Dr. Rob discussed these findings with Dr. Denise on 05/11/2013 at 2:10 PM. This report was approved by Kathy Rob M.D. on 05/11/2013 3:02 PM . I, Dr. DANIAL OZUNA M.D. have personally reviewed and interpreted this examination/study. This report was electronically signed by DANIAL OZUNA M.D. on 05/11/2013 4:58 PM . Narrative 05/11/2013 4:58 PM CDT EXAMINATION: 1. Magnetic resonance imaging (MRI) of the brain without contrast 2. Magnetic resonance angiography (MRA) of the head without contrast HISTORY: Loss of consciousness TECHNIQUE: MRI of the brain was performed without contrast according to standard protocol. MRA of the edboqb-me-Ndirag was performed using a tyii-am-tjarkp technique without contrast. FINDINGS: No prior study is available for comparison. Brain: No evidence of acute or chronic hemorrhage is identified. No evidence of acute cerebral infarction is seen. The ventricles are of normal size, shape, and morphology. No mass effect or midline shift is seen. There are scattered hemispheric white matter FLAIR hyperintensities which are a nonspecific finding, but can be seen in the setting of chronic small vessel ischemic disease. The corpus callosum appears normal. 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 In addition, there is crowding in the suprasellar cistern, though it appears patent. Other than left maxillary sinus disease, the visualized portions of the orbits, paranasal sinuses, and mastoids appear normal. The calvarium and visualized cervical spine appear normal. Angiographic findings: The distal internal carotid arteries appear normal. The anterior and middle cerebral arteries appear normal. The left vertebral artery is dominant. The basilar artery and posterior cerebral arteries appear normal with absence of the left P1 segment. No aneurysms or intracranial stenoses are identified. Procedure Note Danial Ozuna MD - 05/17/2017 EXAMINATION: 1. Magnetic resonance imaging (MRI) of the brain without contrast 2. Magnetic resonance angiography (MRA) of the head without contrast HISTORY: Loss of consciousness TECHNIQUE: MRI of the brain was performed without contrast according tostandard protocol. MRA of the wokzel-zn-Crvmvp was performed using wlcim-xe-oeiosv technique without contrast. FINDINGS: No prior study is available for comparison. Brain: No evidence of acute or chronic hemorrhage is identified. No evidence ofacute cerebral infarction is seen. The ventricles are of normal size,shape, and morphology. No mass effect or midline shift is seen. There arescattered hemispheric white matter FLAIR hyperintensities which are a nonspecific finding, but can be seen inthe setting of chronic small vessel ischemic disease. The corpus callosumappears normal. 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 In addition, there is crowding in the suprasellarcistern, though it appears patent. Other than left maxillary sinus disease, the visualized portions of theorbits, paranasal sinuses, and mastoids appear normal. The calvarium andvisualized cervical spine appear normal. Angiographic findings: The distal internal carotid arteries appear normal. The anterior andmiddle cerebral arteries appear normal. The left vertebral artery isdominant. The basilar artery and posterior cerebral arteries appear normalwith absence of the left P1 segment. No aneurysms or intracranial stenoses are identified. IMPRESSION IMPRESSION: 1. No definite findings to explain loss of consciousness. Specifically noevidence of anoxic brain injury. 2. Fullness in the suprasellar cistern with sagging of the brainstem andcerebellar tonsils. This finding has been described in the setting ofintracranial hypotension, correlate clinically with recent lumbar punctureand the presence of postural headaches. Alternatively, this patient could simply have an incidentalChiari one malformation. 3. Normal examination of the pilot point of P[place]. Dr. Rob discussed these findings with Dr. Denise on 05/11/2013 at 2:10PM. This report was approved by Kathy Rob M.D. on 05/11/2013 3:[address] DANIAL Duarte M.D. have personally reviewed and interpreted thisexamination/study. This report was electronically signed by DANIAL OZUNA M.D. on 05/11/20134:58 PM . Peterson Denise MD MR ORDERABLES * MRI ANGIO BRAIN ARTERIAL WO CONT (05/11/2013 1:53 PM CDT) Anatomical Region Laterality Modality Head Other Impressions 05/11/2013 4:58 PM CDT IMPRESSION: 1. No definite findings to explain loss of consciousness. Specifically no evidence of anoxic brain injury. 2. Fullness in the suprasellar cistern with sagging of the brainstem and cerebellar tonsils. This finding has been described in the setting of intracranial hypotension, correlate clinically with recent lumbar puncture and the presence of postural headaches. Alternatively, this patient could simply have an incidental Chiari one malformation. 3. Normal examination of the pilot point of P[place]. Dr. Rob discussed these findings with Dr. Denise on 05/11/2013 at 2:10 PM. This report was approved by Kathy Rob M.D. on 05/11/2013 3:02 PM . I, Dr. DANIAL OZUNA M.D. have personally reviewed and interpreted this examination/study. This report was electronically signed by DANIAL OZUNA M.D. on 05/11/2013 4:58 PM . Narrative 05/11/2013 4:58 PM CDT EXAMINATION: 1. Magnetic resonance imaging (MRI) of the brain without contrast 2. Magnetic resonance angiography (MRA) of the head without contrast HISTORY: Loss of consciousness TECHNIQUE: MRI of the brain was performed without contrast according to standard protocol. MRA of the rbhcyx-ou-Uprtyx was performed using a mqsu-ih-opypzn technique without contrast. FINDINGS: No prior study is available for comparison. Brain: No evidence of acute or chronic hemorrhage is identified. No evidence of acute cerebral infarction is seen. The ventricles are of normal size, shape, and morphology. No mass effect or midline shift is seen. There are scattered hemispheric white matter FLAIR hyperintensities which are a nonspecific finding, but can be seen in the setting of chronic small vessel ischemic disease. The corpus callosum appears normal. 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 In addition, there is crowding in the suprasellar cistern, though it appears patent. Other than left maxillary sinus disease, the visualized portions of the orbits, paranasal sinuses, and mastoids appear normal. The calvarium and visualized cervical spine appear normal. Angiographic findings: The distal internal carotid arteries appear normal. The anterior and middle cerebral arteries appear normal. The left vertebral artery is dominant. The basilar artery and posterior cerebral arteries appear normal with absence of the left P1 segment. No aneurysms or intracranial stenoses are identified. Procedure Note Danial Ozuna MD - 05/17/2017 EXAMINATION: 1. Magnetic resonance imaging (MRI) of the brain without contrast 2. Magnetic resonance angiography (MRA) of the head without contrast HISTORY: Loss of consciousness TECHNIQUE: MRI of the brain was performed without contrast according tostandard protocol. MRA of the xmiaxy-bb-Ersmxs was performed using klure-ux-juuqbp technique without contrast. FINDINGS: No prior study is available for comparison. Brain: No evidence of acute or chronic hemorrhage is identified. No evidence ofacute cerebral infarction is seen. The ventricles are of normal size,shape, and morphology. No mass effect or midline shift is seen. There arescattered hemispheric white matter FLAIR hyperintensities which are a nonspecific finding, but can be seen inthe setting of chronic small vessel ischemic disease. The corpus callosumappears normal. 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 In addition, there is crowding in the suprasellarcistern, though it appears patent. Other than left maxillary sinus disease, the visualized portions of theorbits, paranasal sinuses, and mastoids appear normal. The calvarium andvisualized cervical spine appear normal. Angiographic findings: The distal internal carotid arteries appear normal. The anterior andmiddle cerebral arteries appear normal. The left vertebral artery isdominant. The basilar artery and posterior cerebral arteries appear normalwith absence of the left P1 segment. No aneurysms or intracranial stenoses are identified. IMPRESSION IMPRESSION: 1. No definite findings to explain loss of consciousness. Specifically noevidence of anoxic brain injury. 2. Fullness in the suprasellar cistern with sagging of the brainstem andcerebellar tonsils. This finding has been described in the setting ofintracranial hypotension, correlate clinically with recent lumbar punctureand the presence of postural headaches. Alternatively, this patient could simply have an incidentalChiari one malformation. 3. Normal examination of the pilot point of P[place]. Dr. Rob discussed these findings with Dr. Denise on 05/11/2013 at 2:10PM. This report was approved by Kathy Rob M.D. on 05/11/2013 3:02 PM . I, Dr. DANIAL OZUNA M.D. have personally reviewed and interpreted thisexamination/study. This report was electronically signed by DANIAL OZUNA M.D. on 05/11/20134:58 PM . Peterson Denise MD ORDERABLES Care Teams Tobacco Sampler Relationship Specialty Start Date End Date Akil Jara MD [address] [address] PCP - General 12/06/21
--- OUTSIDE RECORDS SUMMARY | 2024-04-14 10:55 | XMS_ITS | Clinical Summary ---
Author Organization [facility] Address [address] [place] [id number] Care Team Providers Care Manager Motor Name Role Phone Akil Jara MD Primary Care Provider [phone]- [phone] Allergies No known active allergies Medications nebivolol (BYSTOLIC) 2.5 mg tablet take 2 tablet by oral route every day 0 0 6 Active armodafinil (NUVIGIL) 150 mg tablet 8 Active telmisartan-hyd rochlorothiazid (MICARDIS HCT) 80-25 mg per tablet Active atorvastatin (LIPITOR) 20 mg tablet Active RABEprazole DR (ACIPHEX) 20 mg EC tablet Take 1 tablet (20 mg total) by mouth daily Active telmisartan (MICARDIS) 80 mg tablet 8 03/29/19 25 Discontinu ed(Alterna te therapy) Active Problems Problem Noted Date Diagnosed Date Chronic fatigue 05/27/2017 Essential hypertension 05/27/2017 Tremors of nervous system 05/27/2017 Muscle strain 02/06/2016 Overview (05/24/2016): Strain of left inguinal muscle, initial encounter Encounters Date Type Department Care Team Description 04/08/2024 8:21 AM NUCLEAR OPERATOR - 04/08/2024 11:59 PM NUCLEAR OPERATOR Hospital Encounter [facility] [address] [place] [address] Gastroesophageal reflux disease, unspecified whether esophagitis present Discharge Disposition: Discharge to home or self care 04/07/2024 7:55 AM NUCLEAR OPERATOR - 04/07/2024 11:59 PM NUCLEAR OPERATOR Hospital Encounter [facility] [address] [place] [address] Gastroesophageal reflux disease, unspecified whether esophagitis present Discharge Disposition: Discharge to home or self care 04/05/2024 Telephone [facility] [place] [address] Gabino Saavedra RN from Last 3 Months Surgical History Surgery Date Site/Laterality Comments HYSTERECTOMY SECTION Medical History Medical History Date Comments Hypertension Hypertension Hx Other Medical Chronic Fatigue Hx Other Medical Tremors Hx Other Medical Elbow surgery; Laterality: right Cancer (CMS/HCC) (HCC) 03/27/2021 Bladder c ancer GERD (gastroesophageal reflux disease) Family History Medical History Relation Name Comments Breast cancer Cousin Diabetes Father Diabetes mellit us; Kidney disease Mother Renal disease ; BRCA 1 Neg Hx BRCA 2 Neg Hx Endometrial cancer Neg Hx Ovarian cancer Neg Hx Thyroid cancer Neg Hx Relation Name Status Comments Cousin Father Mother Social History Tobacco Use Types Packs/Day Years Used Date Smoking Tobacco: Never Assessed Comments No Sex and Gender Information Value Date Recorded Sex Assigned at Not on file Legal Sex Female 1:41 PM NUCLEAR OPERATOR Gender Identity Not on file Sexual Orientation Not on file Obstetrics History Para Term AB IAB SAB Ectopic Multiple Livin g Live Births 2 2 2 Date Outcome GA Total Labor Labor/2nd/3rd Weight Sex Type Anes PTL Yanni A1 A5 Name Clin Term Term Last Filed Vital Signs Vital Sign Reading Time Taken Comments Blood Pressure 153/82 04/07/2024 8:03 AM NUCLEAR OPERATOR Pulse 93 04/07/2024 8:03 AM NUCLEAR OPERATOR Temperature 36.7 C (98.1 F) 05/27/2017 8:28 AM CDT Respiratory Rate 18 04/07/2024 8:03 AM NUCLEAR OPERATOR Oxygen Saturation 99% 04/07/2024 8:03 AM NUCLEAR OPERATOR Inhaled Oxygen Concentration - - Weight 86.2 kg (190 lb) 05/27/2017 8:28 AM CDT Height 157.5 cm (5' 2 ) 05/27/2017 8:28 AM CDT Body Mass Index 34.75 05/27/2017 8:28 AM CDT Plan of Treatment Health Maintenance Due Date Last Done Comments Colon Cancer Screening-Colonoscopy 1955 Depression Screening 1957 Fall Risk Assessment 1955 Hepatitis C Screening 1955 DTaP/Tdap/Td Vaccine (1 - Tdap) 1968 Hepatitis B Screening 05/20/1975 Pneumococcal vaccine 65+ (1 of 1 - PCV) 05/20/2007 Zoster Vaccine (1 of 2) 05/20/2007 Well Visit 65+ 2022 Influenza Vaccine (#1) 2023 11/17/2012 Breast Cancer Screening-Mammogram 10/14/2024 10/15/2023, 09/18/2022, 08/29/2021, Additional history exists Osteoporosis Screening-Bone Density Scan 01/21/2025 01/21/2023, 08/09/2020, 03/26/2018 Procedures Procedure Name Priority Date/Time Associated Diagnosis Comments AMBULATORY ESOPHAGEAL PH IMPEDANCE FUNCTION TEST > 1 HOUR (24 HR) Routine 04/11/2024 6:34 AM NUCLEAR OPERATOR Gastroesophageal reflux disease, unspecified whether esophagitis present HIGH RESOLUTION ESOPHAGEAL MOTILITY (MANOMETRY) Routine 04/11/2024 6:33 AM NUCLEAR OPERATOR Gastroesophageal reflux disease, unspecified whether esophagitis present SCREENING MAMMOGRAM BILATERAL W ORLIN Schedule Routine, Read Routine (OP Routine) 10/15/2023 11:09 AM CDT Screening mammogram, encounter for DEXA AXIAL SKELETON BONE DENSITY 1 OR MORE SITES Schedule Routine, Read Routine (OP Routine) 01/21/2023 11:29 AM NUCLEAR OPERATOR Asymptomatic menopausal state from Last 3 Months or Most Recently Relevant to Health Maintenance Results * Ambulatory esophageal pH impedance function test > 1 hour (24 hr) - (04/11/2024 6:34 AM NUCLEAR OPERATOR) Anatomical Region Laterality Modality Other Laura Gray NP GI LAB PROCEDURE ORDERAB LES Final Result * High resolution esophageal motility (manometry) - (04/11/2024 6:33 AM NUCLEAR OPERATOR) Anatomical Region Laterality Modality Other Laura Gray NP GI LAB PROCEDURE ORDERAB LES Final Result * Screening Mammogram Bilateral W Orlin (10/15/2023 11:09 AM CDT) Anatomical Region Laterality Modality Breast Bilateral Mammography 10/15/2023 11:4 4 AM CDT Impressions 10/15/2023 11:44 AM CDT No evidence of malignancy in either breast. FINAL ASSESSMENT: BI-RADS Category 1: Negative. RECOMMENDATION: Recommend return for annual screening mammogram in 12 months. Electronically signed by: Mariela Huffman M.D. Narrative 10/15/2023 11:44 AM CDT EXAMINATION: BILATERAL SCREENING MAMMOGRAM COMPARISON: All prior mammograms dating back to 2019. TECHNIQUE: Full-field 2D and digital breast tomosynthesis (DBT) images were obtained. CAD was utilized. BREAST PARENCHYMAL COMPOSITION: There are scattered areas of fibroglandular density. FINDINGS: There is no suspicious mass, calcification, or distortion in either breast. Self Screening Mammogram IMG MAMMO PROCEDURES Fi nal Result * Dexa Axial Skeleton Bone Density 1 or 2 Site (01/21/2023 11:29 AM NUCLEAR OPERATOR) Anatomical Region Laterality Modality Body N/A Other 01/21/2023 1:12 PM NUCLEAR OPERATOR Impressions 01/21/2023 1:12 PM NUCLEAR OPERATOR Osteopenia of the lumbar spine at L1-L4 Osteopenia of the, total left hip and left femoral neck. 0.7 % increase in bone mineral density in the spine and 6.3% decrease in the hip since previous study Major osteoporotic 10 year fracture risk is 10% Electronically signed by: Mahad Owen M.D. Narrative 01/21/2023 1:12 PM NUCLEAR OPERATOR Examination: DEXA AXIAL SKELETON BONE DENSITY 1 OR MORE SITES Date: 01/21/2023 10:30 AM History: Osteoporosis screening. Comparison: Most recent 08/09/2020 Findings: The bone densitometry of the L1-L4 region, the left femoral neck and the total left hip was calculated using dual-energy x-ray absorptiometry. Summary: Bone mineral density (BMD) of the lumbar spine (L1-4): T-score -1.3; 86 % of normal Bone mineral density (BMD) of the total left hip: T-score -1.4; 82% of normal Bone mineral density (BMD) of the left femoral neck: T-score -2.1; 73% of normal Procedure Note Mahad Owen MD - 01/21/2023 Examination: DEXA AXIAL SKELETON BONE DENSITY 1 OR MORE SITES Date: 01/21/2023 10:30 AM History: Osteoporosis screening. Comparison: Most recent 08/09/2020 Findings: The bone densitometry of the L1-L4 region, the left femoral neck and the total left hip was calculated using dual-energy x-ray absorptiometry. Summary: Bone mineral density (BMD) of the lumbar spine (L1-4): T-score -1.3; 86 % of normal Bone mineral density (BMD) of the total left hip: T-score -1.4; 82% of normal Bone mineral density (BMD) of the left femoral neck: T-score -2.1; 73% of normal IMPRESSION: Osteopenia of the lumbar spine at L1-L4 Osteopenia of the, total left hip and left femoral neck. 0.7 % increase in bone mineral density in the spine and 6.3% decrease in the hip since previous study Major osteoporotic 10 year fracture risk is 10% Electronically signed by: Mahad Owen M.D. Akil Jara MD IMG DXA PROCEDURES Final Re sult from Last 3 Months or Most Recently Relevant to Health Maintenance Insurance [employer] MEDICARE MEDICARE MEDICARE [facility] Care Teams Manager Motor Relationship Specialty Start Date End Date Akil Jara MD PCP - General 03/13/20
--- OUTSIDE RECORDS SUMMARY | 2024-04-14 10:55 | XMS_ITS | Referral Summary ---
Author Organization [facility] Address [address] [place] [id number] Care Team Providers Care Accountant Machine Processing Name Role Phone Akil Jara MD Primary Care Provider [phone] Encounters Date Type Department Care Team Description 04/08/2024 8:21 AM GENERAL SURGEON - 04/08/2024 11:59 PM GENERAL SURGEON Hospital Encounter [facility] [address] [place] [phone] Gastroesophageal reflux disease, unspecified whether esophagitis present Discharge Disposition: Discharge to home or self care 04/07/2024 7:55 AM GENERAL SURGEON - 04/07/2024 11:59 PM GENERAL SURGEON Hospital Encounter [facility] [address] [place] [phone] Gastroesophageal reflux disease, unspecified whether esophagitis present Discharge Disposition: Discharge to home or self care 04/05/[address] [facility] [address] [place] [phone] Gabino Saavedra RN from Last 3 Months Allergies No known active allergies Medications nebivolol [...] Strain of left inguinal muscle, initial encounter Social History Tobacco Use Types Packs/Day Years Used Date Smoking Tobacco: Never Assessed Comments No Sex and Gender Information Value Date Recorded Sex Assigned at Not on file Legal Sex Female 1:41 PM GENERAL SURGEON Gender Identity Not on file Sexual Orientation Not on file Last Filed Vital Signs Vital Sign Reading Time Taken Comments Blood Pressure 153/82 04/07/2024 8:03 AM GENERAL SURGEON Pulse 93 04/07/2024 8:03 AM GENERAL SURGEON Temperature 36.7 C (98.1 F) 05/27/2017 8:28 AM CDT Respiratory Rate 18 04/07/2024 8:03 AM GENERAL SURGEON Oxygen Saturation 99% 04/07/2024 8:03 AM GENERAL SURGEON Inhaled Oxygen Concentration - - Weight 86.2 kg (190 lb) 05/27/2017 8:28 AM CDT Height 157.5 cm (5' 2 ) 05/27/2017 8:28 AM CDT Body Mass Index 34.75 05/27/2017 8:28 AM CDT Plan of Treatment Not on file Procedures Procedure Name Priority Date/Time Associated Diagnosis Comments AMBULATORY ESOPHAGEAL PH IMPEDANCE FUNCTION TEST > 1 HOUR (24 HR) Routine 04/11/2024 6:34 AM GENERAL SURGEON Gastroesophageal reflux disease, unspecified whether esophagitis present HIGH RESOLUTION ESOPHAGEAL MOTILITY (MANOMETRY) Routine 04/11/2024 6:33 AM GENERAL SURGEON Gastroesophageal reflux disease, unspecified whether esophagitis present SCREENING MAMMOGRAM BILATERAL W ORLIN Schedule Routine, Read Routine (OP Routine) 10/15/2023 11:09 AM CDT Screening mammogram, encounter for DEXA AXIAL SKELETON BONE DENSITY 1 OR MORE SITES Schedule Routine, Read Routine (OP Routine) 01/21/2023 11:29 AM GENERAL SURGEON Asymptomatic menopausal state from Last 3 Months or Most Recently Relevant to Health Maintenance Results * Ambulatory esophageal pH impedance function test > 1 hour (24 hr) - (04/11/2024 6:34 AM GENERAL SURGEON) Anatomical Region Laterality Modality Other Laura Gray NP GI LAB PROCEDURE ORDERAB LES Final Result * High resolution esophageal motility (manometry) - (04/11/2024 6:33 AM GENERAL SURGEON) Anatomical Region Laterality Modality Other Laura Gray [...] 1 or 2 Site (01/21/2023 11:29 AM GENERAL SURGEON) Anatomical Region Laterality Modality Body N/A Other 01/21/2023 1:12 PM GENERAL SURGEON Impressions 01/21/2023 1:12 PM GENERAL SURGEON Osteopenia of the lumbar spine at L1-L4 Osteopenia of the, total left hip and left femoral neck. 0.7 % increase in bone mineral density in the spine and 6.3% decrease in the hip since previous study Major osteoporotic 10 year fracture risk is 10% Electronically signed by: Mahad Owen M.D. Narrative 01/21/2023 1:12 PM GENERAL SURGEON Examination: DEXA AXIAL SKELETON BONE DENSITY 1 [...] Most Recently Relevant to Health Maintenance Insurance [facility] MEDICARE MEDICARE [facility]ICARE [facility] Care Teams Accountant Machine Processing Relationship Specialty Start Date End Date Akil Jara MD PCP - General 03/13/20
--- OUTSIDE RECORDS SUMMARY | 2024-04-14 10:55 | XMS_ITS | Continuity of Care Document ---
[facility] Address [address] [place] [address] Phone Care Team Providers Care Garden Machinery Mechanic Name Role Phone Theo Son DO Unavailable Unavailable Advance Directives Directive Yes / No Effective Date File Name No Information Encounters Encounter Description Practice Location Reason(s) For Visit Diagnoses Date Provider Providers Copied on Encounter [facility], [address], [place], [place], [id number], [place] tel:[phone] Son No Information Adelaida Venegas. [address], [place], [place], [id number], [place]. tel:[phone] Family History Family Member Type Diagnosis Age At Onset No Information Payers Payer name Insurance type Covered green party ID Authoriza tion(s) No Information Social History Type Description Quantity Date Captured Comments Sex Female Smoking Status No Information Chief Complaint And Reason For Visit No Information Reason For Referral Reason For Referral No Information History Of Present Illness Encounter Date Complaint History Of Prese nt Illness No Information Functional Status Date Functional Assessmen t No Information Instructions Date Instruction Additional Infor mation No Information Assessments Type Assessment Date No Information Patient Care Teams Name Effective Dates (start - stop) Status Members No Information
--- OUTSIDE RECORDS SUMMARY | 2024-04-14 10:55 | XMS_ITS | Clinical Summary ---
Author Organization [facility] Address [address] [place] [address] Care Team Providers Care Exterior Interior Specialist Name Role Phone Akil Jara MD Primary Care Provider [phone] [facility],non-owned Affiliates and Associated Physician Practices is amultiple site organization consisting of ambulatory clinics and hospital sitesin [place], [place], [place] and [place]. This disclosure is being madepursuant to the Care Everywhere program and may not contain all information available regarding this patient. Last updated 17.[facility] Social History Tobacco Use Types Packs/Day Years [...] Mass Index 28.34 05/13/2013 9:29 AM CDT Plan of Treatment Health Maintenance Due Date Last Done Comments BONE DENSITY TESTING 1955 COLOGUARD (AGES 45-75) - COL ON CA SCREENING 1957 COLON MONITORING 1957 COLONOSCOPY - COLON CA SCREENING 1957 CT COLONOGRAPHY - COLON CA SCREENING 1957 Colorectal Cancer Screening 1957 FIT - COLON CA SCREENING 1957 FLEX SIG - COLON CA SCREENING 1957 LIPID TESTING 1957 MAMMOGRAM 1955 MEDICARE AWV 12 MONTHS 1957 HEPATITIS C SCREENING 05/15/1975 DTAP/TDAP/TD VACCINES (1 - Tdap) 1976 PNEUMOCOCCAL VACCINE 50+ (1 of 1 - PCV) 05/20/2007 ZOSTER VACCINE (1 of 2) 05/20/2007 COVID-19 VACCINE ( - 2023-2 5 season) 2023 INFLUENZA VACCINE (#1) 2023 DEPRESSION SCREENING 02/18/2024 Respiratory Syncytial Virus (RSV) Vaccine Pt: or over 60 yrs (1 - 1-dose 75+ series) 2032 HEPATITIS B VACCINE Aged Out No longe r eligible based on patient's age to complete this topic HIB VACCINE Aged Out No longer eligi ble based on patient's age to complete this topic HPV VACCINE Aged Out No longer eligi ble based on patient's age to complete this topic MENINGOCOCCAL (Group B) VACCINE Aged Out No longer eligible based on patient's age to complete this topic MENINGOCOCCAL VACCINE Aged Out No lisa celso eligible based on patient's age to complete this topic Care Teams Exterior Interior Specialist Relationship Specialty Start Date End Date Akil Jara MD [address] [address] PCP - General 12/06/21
--- OUTSIDE RECORDS SUMMARY | 2024-04-14 10:55 | XMS_ITS | Referral Summary ---
Author Organization [facility] Address [address] [place] [address] Care Team Providers Care Museum Librarian Name Role Phone Akil Jara MD Primary Care Provider [phone] Source Comments [facility],non-owned Affiliates and Associated Physician Practices is amultiple site organization consisting of ambulatory clinics and hospital sitesin [place], [place], [place] and [place]. This disclosure is being madepursuant to the Care Everywhere program and may not contain all information available regarding this patient. Last updated 17.[facility] Social History Tobacco Use Types Packs/Day [...] 05/13/2013 9:29 AM CDT Plan of Treatment Not on file Care Teams Museum Librarian Relationship Specialty Start Date End Date Akil Jara MD [address] [address] PCP - General 12/06/21
[2024-04-14 11:54] LABS: Anion Gap 13 mmol/L (4-12); Blood Urea Nitrogen 21 mg/dL (7-17); Calcium 9.5 mg/dL (8.4-10.2); Carbon Dioxide 28 mmol/L (22-30); Chloride 98 mmol/L (98-107); Estimated Glomerular Filt Rate 47; Glucose 96 mg/dL (65-110); Potassium 3.6 mmol/L (3.4-5.0); Sodium 139 mmol/L (137-145)
== END 2024-04-14 09:46 | disposition home or self-care (01) ==
LOC: ANHSURGERY 09:49
PROVIDERS: Anesthesiology; PCP Internal Medicine; Visit Provider Urology
DX: E78.5 Hyperlipidemia, unspecified (principal); I10 Essential (primary) hypertension; C67.9 Malignant neoplasm of bladder, unspecified; R94.31 Abnormal electrocardiogram [ECG] [EKG]; Z79.899 Other long term (current) drug therapy
CPT/HCPCS: 36415; 80048; 87086; 93005

== ENCOUNTER 2024-04-23 01:29 | Day surgery (SDC) | payer MEDICARE, SELFPAY ==
[2024-04-08 14:35] VITALS: BMI 34.4
--- NOTE | 2024-04-08 14:36 | PC.NURSE ---
Report to the Outpatient Waiting Room, entrance under the green pavilion located off [facility], at time __0900am on date __04/23/24 . Planned Procedure Time: ___1100am .? Time changes happen often and if your time is changed the preop area will call you the afternoon before. - You and your visitor will be asked to self-screen and do not enter if you have any COVID symptoms. Please call surgeon if you need to reschedule. - A mask is optional within the hospital at this time. Patients may have clear liquids (water, carbonated beverages, clear teas, apple juice) until 3 hours prior to surgery with a maximum of 20 ounces. - No food from midnight until time of surgery and no smoking, or chewing tobacco (or any form of nicotine). No chewing gum, candy or mints. (0800am) Take only the following medications with a SIP of water on the morning of surgery: __None DO NOT STOP ANY OF YOUR OTHER PRESCRIPTION MEDICATIONS PRIOR TO SURGERY EXCEPT THE FOLLOWING Hold all vitamins and supplements for 3 days per anesthesiologist. Date to take last dose 04/19/24 Please no make-up, nail faroese, hairspray, perfume, deodorant, or body powder the day of surgery.? No jewelry (including any body piercings) or valuables the day of surgery, leave them at home.? Please take a shower or bath the night before, or the morning of, surgery with an antibacterial soap.? Wear comfortable, loose fitting clothing.? - Jewelry must be removed prior to entering the operating room.? Rings and piercings that are not removed may be cut off. - The hospital will not accept responsibility for valuables.? - Please leave all valuables, including medications, at home the day of surgery. If you are going home after surgery, a licensed route salesman and driver must drive you home.? - NO public transportation without another adult if you receive anesthesia. - We recommend that an adult stay with you for 24 hours following discharge. - We also recommend that you do not drive, make important decision, drink alcoholic beverages, or take any drugs that were not prescribed by your health care provider for at least 24 hours after your discharge time. Follow any additional instructions given to you from your surgeon. Telephone instructions given to ____Patient and asked if any additional questions and then verbalized understanding. Patient advised to call surgeon office or pre surgery nurse liaison [phone] if any additional questions.
--- NOTE | 2024-04-18 18:01 | PM.IMHP ---
H&P: HPI History of Present Illness Date/Time: 04/18/24 18:01 Chief Complaint: h/o TCC bladder Narrative: presents for resection Review of Systems Review of Systems: All systems reviewed & are unremarkable except as noted in HPI and below PMFSH Past Medical History Medical History Bladder cancer Screening mammogram for high-risk patient History of endometrial biopsy 05/19/03 hscope EMB--proliferative endometrium, suggestive of endometrial polyp Narcolepsy Sleep apnea Frequent headaches Hyperlipidemia Hypertension Surgical History Surgical History History of cholecystectomy History of robot-assisted laparoscopic hysterectomy (09/22/19) RA TLH w/BSO--postmenopausal bleeding History of dilation and curettage 03/20/17 hscope d&c--postmenopausal bleeding, atrophic endometrial cavity, endometrial fibroids 12/24/18 hscope d&c--postmenopausal bleeding History of elbow surgery (07/18/08) (R) elbow tendonitis History of endometrial ablation 07/06/03 hscope Novasure endometrial ablation--menometrorrhagia, dysmenorrhea, uterine fibroids History of 05/19/83 primary c/s 08/17/88 repeat c/s Family History Family History Sibling Heart disease Sister Seizure disorder brother Father Diabetes mellitus Hypertension Mother Kidney disease Grandparent Cerebrovascular accident maternal grandmother Social History Social History Smoking status: Never smoker Alcohol intake: never Alcohol use details: 2 month Substance use: never Substance use type: does not use Lack of Transportation: No Lack of Food: Never True Current Housing: I Have Housing Concerned About Future Housing: No Difficulty Paying Gas/Electric Bills: No Difficulty Paying for Meds: No Currently Unemployed: No Education: Associate Degree Difficulty w/ Childcare or Family Care: No Living arrangements: with family Additional living arrangements comments: 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 Gender identity (if verbalized by the patient): Female Sexual Orientation (if Verbalized by the Patient): Straight or Heterosexual Spiritual care concerns: No Meds Home Medications and Allergies Home Medications ?Medication ?Instructions ?Recorded ?Confirmed ?Type calcium 300 mg-D3 20 mcg-magnesium 1 tablet PO DAILY 09/10/19 04/08/24 History 25 mg-coppr 0.5 [id number] tablet (Caltrate-D3 Plus Minerals) telmisartan 80 1 tablet PO DAILY 09/10/19 04/08/24 History mg-hydrochlorothiazide 25 mg tablet atorvastatin 20 mg tablet 20 mg PO DAILY 12/17/23 04/08/24 History rabeprazole 20 mg tablet,delayed 20 mg PO BID #60 tabs 03/25/24 04/08/24 Rx release (AcipHex) Allergies Allergy/AdvReac Type Severity Reaction Status Date / Time No Known Allergies Allergy Mild Verified 04/08/24 14:24 Exam Narrative: NAD normal breathing Assessment and Plan Assessment and plan (1) Lesion of bladder: Code(s): N32.9 - Bladder disorder, unspecified Status: Acute Assessment and Plan: TURBT
--- NOTE | 2024-04-22 13:02 | WPDANESEPPF ---
Anes - Initial Pre Proc Eval Procedure: Operation Date: 04/23/24 11:00 Proposed Procedures p Trans Urethral Resection Bladder Tumor - Doyle Alonso MD Date/Time: 04/22/24 13:02 Surgeon: Doyle Alonso MD Pre Op Diagnosis: malignant neoplasm of bladder Patient Data Age: 68 Gender: F Height: 1.57 m Weight: 85.4 kg Allergies Allergy/AdvReac Type Severity Reaction Status Date / Time No Known Allergies Allergy Mild Verified 04/23/24 09:45 Home Medications ?Medication ?Instructions ?Recorded ?Confirmed ?Type calcium 300 mg-D3 20 mcg-magnesium 1 tablet PO DAILY 09/10/19 04/08/24 History 25 mg-coppr 0.5 [id number] tablet (Caltrate-D3 Plus Minerals) telmisartan 80 1 tablet PO DAILY 09/10/19 04/08/24 History mg-hydrochlorothiazide 25 mg tablet atorvastatin 20 mg tablet 20 mg PO DAILY 12/17/23 04/08/24 History rabeprazole 20 mg tablet,delayed 20 mg PO BID #60 tabs 03/25/24 04/08/24 Rx release (AcipHex) Patient hx anesthesia problems: none Family hx anesthesia problems: none Results Review: All pre-operative results and documents have been reviewed as part of the pre-operative evaluation. [facility] Past Medical History Medical History Bladder cancer Screening mammogram for high-risk patient History of endometrial biopsy 05/19/03 hscope EMB--proliferative endometrium, suggestive of endometrial polyp Narcolepsy Sleep apnea Frequent headaches Hyperlipidemia Hypertension Surgical History Surgical History History of cholecystectomy History of robot-assisted laparoscopic hysterectomy (09/22/19) RA TLH w/BSO--postmenopausal bleeding History of dilation and curettage 03/20/17 hscope d&c--postmenopausal bleeding, atrophic endometrial cavity, endometrial fibroids 12/24/18 hscope d&c--postmenopausal bleeding History of elbow surgery (07/18/08) (R) elbow tendonitis History of endometrial ablation 07/06/03 hscope Novasure endometrial ablation--menometrorrhagia, dysmenorrhea, uterine fibroids History of 05/19/83 primary c/s 08/17/88 repeat c/s Family History Family History Sibling Heart disease Sister Seizure disorder brother Father Diabetes mellitus Hypertension Mother Kidney disease Grandparent Cerebrovascular accident maternal grandmother Social History Social History Smoking status: Never smoker Alcohol intake: never Alcohol use details: 2 month Substance use: never Substance use type: does not use Lack of Transportation: No Lack of Food: Never True Current Housing: I Have Housing Concerned About Future Housing: No Difficulty Paying Gas/Electric Bills: No Difficulty Paying for Meds: No Currently Unemployed: No Education: Associate Degree Difficulty w/ Childcare or Family Care: No Living arrangements: with family Additional living arrangements comments: 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 Gender identity (if verbalized by the patient): Female Sexual Orientation (if Verbalized by the Patient): Straight or Heterosexual Spiritual care concerns: No Anes - Eval Final PreProcedure Day of Procedure 04/22/24 13:02 Patient weight: obese Heart: regular rate and rhythm Lungs: clear to auscultation Airway: Mallampati scale class II Neurological: alert and oriented Last oral intake: >/= 8 hours ASA classification: III Emergent: no Anesthetic plan: proceed Anesthesia type and monitoring: general LMA and standard monitoring Results Review: All pre-operative results and documents have been reviewed as part of the pre-operative evaluation. Informed Consent: The patient's anesthetic plan and its attendant risks and benefits were discussed with the patient/family/POA. Questions were solicited and answers provided to the satisfaction of the patient/family/POA.
--- OUTSIDE RECORDS SUMMARY | 2024-04-23 01:35 | XMS_ITS | CONTINUITY OF CARE DOCUMENT ---
Author Name kiley cao Address Unknown Organization [facility] Address [address] [place] [address] Phone [phone] Care Team Providers Care Fuel Pilot Engineer Name Role Phone JOSH MO, ANNAMARIA Unavailable TEDDY MO, ELLIOT Pearson Unavailable INSURANCE PROVIDERS Payer name Policy type / Coverage type Mauldin red democrat ID BLUE [facility] Blue [facility] [id number]
--- OUTSIDE RECORDS SUMMARY | 2024-04-23 01:35 | XMS_ITS | Patient Health Summary ---
Author Organization [facility] Address [address] [place] [address] Care Team Providers Care Bean Picker Name Role Phone Akil Jara MD Primary Care Provider Note from [facility],non-owned Affiliates and Associated Physician Practices is amultiple site organization consisting of ambulatory clinics and hospital sitesin [place], [place], [place] and [place]. This disclosure is being madepursuant to the Care Everywhere program and may not contain all information available regarding this patient. Last updated 17.[facility] Social History Tobacco Use Types Packs/Day Years [...] one malformation. 3. Normal examination of the [place]. Dr. Rob discussed these findings [...] according to standard protocol. MRA of the cgjwfy-ar-Diteif was performed using a gtys-vf-swgfxl technique without contrast. FINDINGS: No prior study [...] contrast according tostandard protocol. MRA of the rupdsz-zr-Xpopml was performed using oqahk-dr-swhofz technique without contrast. FINDINGS: No prior study [...] one malformation. 3. Normal examination of the [place]. Dr. Rob discussed these findings [...] one malformation. 3. Normal examination of the [place]. Dr. Rob discussed these findings [...] according to standard protocol. MRA of the puzalq-zm-Rlpazq was performed using a jpop-hf-dnrovb technique without contrast. FINDINGS: No prior study [...] contrast according tostandard protocol. MRA of the ityzsy-cv-Hcekpm was performed using rgaxt-hc-yqrely technique without contrast. FINDINGS: No prior study [...] one malformation. 3. Normal examination of the [place]. Dr. Rob discussed these findings with Dr. Denise on 05/11/2013 at 2:10PM. This report was approved by Kathy Rob M.D. on 05/11/2013 3:02 PM . I, Dr. DANIAL OZUNA M.D. have personally reviewed and interpreted thisexamination/study. This report was electronically signed by DANIAL OZUNA M.D. on 05/11/20134:58 PM . Peterson Denise MD ORDERABLES Care Teams Bean Picker Relationship Specialty Start Date End Date Akil Jara MD [address] [address] PCP - General 12/06/21
--- OUTSIDE RECORDS SUMMARY | 2024-04-23 01:35 | XMS_ITS | Referral Summary ---
Author Organization [facility] Address [address] [place] [address] Care Team Providers Care Operations Chief Name Role Phone Akil Jara MD Primary Care Provider [phone] Source Comments [facility],non-owned Affiliates and Associated Physician Practices is amultiple site organization consisting of ambulatory clinics and hospital sitesin [place], [place], [place] and [place]. This disclosure is being madepursuant to the Care Everywhere program and may not contain all information available regarding this patient. Last updated 17.[facility] Social History Tobacco Use Types Packs/Day [...] of Treatment Not on file Care Teams Operations Chief Relationship Specialty Start Date End Date Akil Jara MD [address] [address] PCP - General 12/06/21
--- OUTSIDE RECORDS SUMMARY | 2024-04-23 01:35 | XMS_ITS | Clinical Summary ---
Author Organization [facility] Address [address] [place] [phone] Care Team Providers Care Packaging Assembler Name Role Phone Akil Jara MD Primary Care Provider [phone] Allergies No known active allergies Medications nebivolol [...] Department Care Team Description 04/08/2024 8:21 AM CONSULTING SOLUTION DIRECTOR - 04/08/2024 11:59 PM CONSULTING SOLUTION DIRECTOR Hospital Encounter [facility] [address] [place] [address] Gastroesophageal reflux disease, unspecified whether esophagitis present Discharge Disposition: Discharge to home or self care 04/07/2024 7:55 AM CONSULTING SOLUTION DIRECTOR - 04/07/2024 11:59 PM CONSULTING SOLUTION DIRECTOR Hospital Encounter [facility] [place] [address] Gastroesophageal reflux disease, unspecified whether esophagitis present Discharge Disposition: Discharge to home or self care 04/05/2024 Telephone [facility] [place] [address] Gabino Saavedra RN from Last 3 Months Surgical History Surgery Date Site/Laterality Comments HYSTERECTOMY SECTION Medical History Medical History Date Comments Hypertension Hypertension Hx Other Medical Chronic Fatigue Hx Other Medical Tremors Hx Other Medical Elbow surgery; Laterality: right Cancer (HCC) 03/27/2021 Bladder cancer GERD (gastroesophageal reflux disease) Family History Medical History Relation Name Comments Breast cancer Cousin Diabetes Father Diabetes mellit ; Kidney disease Mother Renal disease ; BRCA [...] on file Legal Sex Female 1:41 PM CONSULTING SOLUTION DIRECTOR Gender Identity Not on file Sexual Orientation Not on file Obstetrics History Para Term AB IAB SAB Ectopic Multiple Livin g Live Births 2 2 2 Date Outcome GA Total Labor Labor/2nd/3rd Weight Sex Type Anes PTL Yanni A1 A5 Name Clin Term Term Last Filed Vital Signs Vital Sign Reading Time Taken Comments Blood Pressure 153/82 04/07/2024 8:03 AM CONSULTING SOLUTION DIRECTOR Pulse 93 04/07/2024 8:03 AM CONSULTING SOLUTION DIRECTOR Temperature 36.7 C (98.1 F) 05/27/2017 8:28 AM CDT Respiratory Rate 18 04/07/2024 8:03 AM CONSULTING SOLUTION DIRECTOR Oxygen Saturation 99% 04/07/2024 8:03 AM CONSULTING SOLUTION DIRECTOR Inhaled Oxygen Concentration - - Weight 86.2 [...] HOUR (24 HR) Routine 04/11/2024 6:34 AM CONSULTING SOLUTION DIRECTOR Gastroesophageal reflux disease, unspecified whether esophagitis present HIGH RESOLUTION ESOPHAGEAL MOTILITY (MANOMETRY) Routine 04/11/2024 6:33 AM CONSULTING SOLUTION DIRECTOR Gastroesophageal reflux disease, unspecified whether esophagitis present SCREENING MAMMOGRAM BILATERAL W ORLIN Schedule Routine, Read Routine (OP Routine) 10/15/2023 11:09 AM CDT Screening mammogram, encounter for DEXA AXIAL SKELETON BONE DENSITY 1 OR MORE SITES Schedule Routine, Read Routine (OP Routine) 01/21/2023 11:29 AM CONSULTING SOLUTION DIRECTOR Asymptomatic menopausal state from Last 3 Months or Most Recently Relevant to Health Maintenance Results * Ambulatory esophageal pH impedance function test > 1 hour (24 hr) - (04/11/2024 6:34 AM CONSULTING SOLUTION DIRECTOR) Anatomical Region Laterality Modality Other us Laura Gray NP GI LAB PROCEDURE ORDERAB LES Final Result * High resolution esophageal motility (manometry) - (04/11/2024 6:33 AM CONSULTING SOLUTION DIRECTOR) Anatomical Region Laterality Modality Other us Laura Gray NP GI LAB PROCEDURE ORDERAB [...] 1 or 2 Site (01/21/2023 11:29 AM CONSULTING SOLUTION DIRECTOR) Anatomical Region Laterality Modality Body N/A Other 01/21/2023 1:12 PM CONSULTING SOLUTION DIRECTOR Impressions 01/21/2023 1:12 PM CONSULTING SOLUTION DIRECTOR Osteopenia of the lumbar spine at L1-L4 Osteopenia of the, total left hip and left femoral neck. 0.7 % increase in bone mineral density in the spine and 6.3% decrease in the hip since previous study Major osteoporotic 10 year fracture risk is 10% Electronically signed by: Mahad Owen M.D. Narrative 01/21/2023 1:12 PM CONSULTING SOLUTION DIRECTOR Examination: DEXA AXIAL SKELETON BONE DENSITY 1 [...] Most Recently Relevant to Health Maintenance Insurance [employer] ACCESS OOS Member Subscriber Plan / Payer (Ef fective 2020-Present) Name:Lindy Quarles Member ID:[id number] Relation to Subscriber:Self Name:LINDY QUARLES Subscriber ID:[id number] Payer ID:[id number] (NAIC) Type:[facility] Address: [facility] [address] [place] [address] MEDICARE * Guarantor: Lindy Quarles Account Type Relation to Patient Date of Phone Billing Address Personal/Family Self 1955 [address] [facility] [place] [address] MEDICARE MEDICARE [facility] Care Teams Packaging Assembler Relationship Specialty Start Date End Date Akil Jara MD PCP - General 03/13/20
--- OUTSIDE RECORDS SUMMARY | 2024-04-23 01:35 | XMS_ITS | Clinical Summary ---
Author Organization [facility] Address [address] [place] [address] Care Team Providers Care Conference Services Coordinator Name Role Phone Akil Jara MD Primary Care Provider [phone] Source Comments [facility],non-owned Affiliates and Associated Physician Practices is amultiple site organization consisting of ambulatory clinics and hospital sitesin [place], [place], [place] and [place]. This disclosure is being madepursuant to the Care Everywhere program and may not contain all information available regarding this patient. Last updated 17.[facility] Social History Tobacco Use Types [...] age to complete this topic Care Teams Conference Services Coordinator Relationship Specialty Start Date End Date Akil Jara MD [address] [address] PCP - General 12/06/21
--- OUTSIDE RECORDS SUMMARY | 2024-04-23 01:35 | XMS_ITS | Continuity of Care Document ---
Author Organization [facility] Address [address] [place] [address] Phone Care Team Providers Care Court Assistant Name Role Phone Theo Son DO Unavailable Unavailable Advance Directives Directive Yes / No Effective Date File Name No Information Encounters Encounter Description Practice Location Reason(s) For Visit Diagnoses Date Provider Providers Copied on Encounter [facility], [address], [place], [place], [id number], [place] tel:[phone] Son No Information Adelaida Venegas. [address] [facility], [place], [place], [id number], [place]. tel:[phone] Family History Family Member Type Diagnosis Age At Onset No Information Payers Payer name Insurance type Covered alliance party ID Authoriza tion(s) No Information Social [...]
--- OUTSIDE RECORDS SUMMARY | 2024-04-23 01:35 | XMS_ITS | Data Portability ---
Author Organization [facility] Address [address] [address] Assessment No assessment recorded. Plan of Treatment [...] /min 18 /min 98 [degF] 29.6 kg/m2 34416.9 6 g 99 % 99 % 88 /min 128 mm[Hg] 88 mm[Hg] Angel Henry DO [address] [facility] [address], [place], [address] , [place] - [facility] 11:41:54 Social History Question Answer Notes LastModified by Organizat ion Details LastModified Time What Is Your Level Of Alcohol Consumption? None [email or web address] Information not available 09/27/2020 What Type Of Diet Are You Following? Regular [email or web address] Information not available 09/27/2020 How Many Children Do You Have? 0 [email or web address] Information not available 09/27/2020 Do You Or Have You Ever Used Smokeless Tobacco? [phone] [email or web address] Information not available 09/27/2020 Sex: Unknown Functional Status None recorded. Mental Status None recorded. Family History Nothing Reported. Medical History No medical history recorded. Gynecological HistoryNo gynecological history recorded. Obstetrics History GPAL:G 0 P 0 0 0 0 Past Encounters Encounter ID Performer Location Encounter Start Date Encounter Closed Date Diagnosis/Indication Diagnosis SNOMED-CT Code Diagnosis ICD10 Code Diagnosis Note [id number] DO [facility] [address] [facility] [place] [address] 09/27/2020 11:14:09 10/17/2020 00:46:47 Tinea corporis 93168092 B35.4 Pruritic rash 21480672 L 28.2 Health Concerns Section Related Observation LastModified by Organization Detai ls LastModified Time None Recorded Concern Status LastModified by Organization Details LastModified Time None Recorded Advance Directives Directive None Recorded Payers Encounter Date Sequence Insurance Name Policy Number Policy Vásquez Covered Member ID Vásquez Member ID Guarantor Name 09/27/2020 1 [facility]: [employer] (PPO) [id number] G Lindy Hustedt [id number] AB Lindy Hustedt Notes Date Note Type Note Provider Name and Address Organization Details Recorded Time 09/27/2020 text/html General Rash/Ski n LesionReported bypatient.Location:[facility] Quality:itchy;painfu l;red;multiple Severity:moderate; worsening Duration:has noted for <1 week Onset/Timing:gradual onset Context:no new detergents or skin products; no one else with similar rash;scratching Alleviating factors:nothing gives relief Aggravating factors:nothing makes it worse Associated Symptoms:no fever; no cold symptoms; no nausea; no vomiting; no diarrhea; no urinary symptoms Angel Henry, DO [address], [place], [address], [facility] - [facility] 09/27/2020 11:48:52 OBGyn Episode No OBEpisode recorded.
--- OUTSIDE RECORDS SUMMARY | 2024-04-23 01:36 | XMS_ITS | Referral Summary ---
Author Organization [facility] Address [address] [place] [address] Care Team Providers Care Train Dispatcher Name Role Phone Akil Jara MD Primary Care Provider [phone] Encounters Date Type Department Care Team Description 04/08/2024 8:21 AM CONTACT CENTER SPECIALIST - 04/08/2024 11:59 PM CONTACT CENTER SPECIALIST Hospital Encounter [facility] [address] [place] [address] Gastroesophageal reflux disease, unspecified whether esophagitis present Discharge Disposition: Discharge to home or self care 04/07/2024 7:55 AM CONTACT CENTER SPECIALIST - 04/07/2024 11:59 PM CONTACT CENTER SPECIALIST Hospital Encounter [facility] [address] [place] [address] Gastroesophageal reflux disease, unspecified whether esophagitis present Discharge Disposition: Discharge to home or self care 04/05/2024 Telephone [facility] [address] [place] [address] Gabino Saavedra RN from Last 3 [...] on file Legal Sex Female 1:41 PM CONTACT CENTER SPECIALIST Gender Identity Not on file Sexual Orientation Not on file Last Filed Vital Signs Vital Sign Reading Time Taken Comments Blood Pressure 153/82 04/07/2024 8:03 AM CONTACT CENTER SPECIALIST Pulse 93 04/07/2024 8:03 AM CONTACT CENTER SPECIALIST Temperature 36.7 C (98.1 F) 05/27/2017 8:28 AM CDT Respiratory Rate 18 04/07/2024 8:03 AM CONTACT CENTER SPECIALIST Oxygen Saturation 99% 04/07/2024 8:03 AM CONTACT CENTER SPECIALIST Inhaled Oxygen Concentration - - Weight 86.2 kg (190 lb) 05/27/2017 8:28 AM CDT Height 157.5 cm (5' 2 ) 05/27/2017 8:28 AM CDT Body Mass Index 34.75 05/27/2017 8:28 AM CDT Plan of Treatment Not on file Procedures Procedure Name Priority Date/Time Associated Diagnosis Comments AMBULATORY ESOPHAGEAL PH IMPEDANCE FUNCTION TEST > 1 HOUR (24 HR) Routine 04/11/2024 6:34 AM CONTACT CENTER SPECIALIST Gastroesophageal reflux disease, unspecified whether esophagitis present HIGH RESOLUTION ESOPHAGEAL MOTILITY (MANOMETRY) Routine 04/11/2024 6:33 AM CONTACT CENTER SPECIALIST Gastroesophageal reflux disease, unspecified whether esophagitis present SCREENING MAMMOGRAM BILATERAL W ORLIN Schedule Routine, Read Routine (OP Routine) 10/15/2023 11:09 AM CDT Screening mammogram, encounter for DEXA AXIAL SKELETON BONE DENSITY 1 OR MORE SITES Schedule Routine, Read Routine (OP Routine) 01/21/2023 11:29 AM CONTACT CENTER SPECIALIST Asymptomatic menopausal state from Last 3 Months or Most Recently Relevant to Health Maintenance Results * Ambulatory esophageal pH impedance function test > 1 hour (24 hr) - (04/11/2024 6:34 AM CONTACT CENTER SPECIALIST) Anatomical Region Laterality Modality Other Laura Gray NP GI LAB PROCEDURE ORDERAB LES Final Result * High resolution esophageal motility (manometry) - (04/11/2024 6:33 AM CONTACT CENTER SPECIALIST) Anatomical Region Laterality Modality Other Laura Gray [...] 1 or 2 Site (01/21/2023 11:29 AM CONTACT CENTER SPECIALIST) Anatomical Region Laterality Modality Body N/A Other 01/21/2023 1:12 PM CONTACT CENTER SPECIALIST Impressions 01/21/2023 1:12 PM CONTACT CENTER SPECIALIST Osteopenia of the lumbar spine at L1-L4 Osteopenia of the, total left hip and left femoral neck. 0.7 % increase in bone mineral density in the spine and 6.3% decrease in the hip since previous study Major osteoporotic 10 year fracture risk is 10% Electronically signed by: Mahad Owen M.D. Narrative 01/21/2023 1:12 PM CONTACT CENTER SPECIALIST Examination: DEXA AXIAL SKELETON BONE DENSITY 1 [...] Most Recently Relevant to Health Maintenance Insurance [facility] Address: [address] [place] [address] [place] [address] [facility] [place] [address] Care Teams Train Dispatcher Relationship Specialty Start Date End Date Akil Jara MD PCP - General 03/13/20
--- NOTE | 2024-04-23 04:21 | WPDHPUPDATE1 ---
History and Physical Update Update Date/Time: 04/23/24 04:21 History and Physical has been reviewed, including an updated exam of the patient. There are NO changes in the patient's condition. Risks, benefits, and alternatives have been discussed and questions answered. Patient agrees to proceed with procedure.
[2024-04-23 09:46] VITALS: BP 138/75; PULSE 90; TEMP 36.8; O2SAT 98; BMI 36.0
[2024-04-23] MEDS: LACTATED RINGERS 1,000 ML 30 ML IV CONT (09:50)
[2024-04-23] MEDS: ceFAZolin 2 GM/D5W 50 ML 2 GM/50 ML BAG IVPB (11:13)
[2024-04-23] MEDS: LIDOCAINE 2% GEL UROJET 10 ML PKG MUCOUS MEM (11:13)
[2024-04-23 11:34] VITALS: BP 99/58; PULSE 84; RESP 14; O2SAT 95
--- NOTE | 2024-04-23 11:51 | W.PM.PROC2 ---
Procedure Note - Detailed Date of Procedure 04/23/24 Pre-op Diagnosis malignant neoplasm of bladder Bladder lesion History of low-grade bladder cancer Post-op Diagnosis Same Procedure Performed Cystoscopy with transurethral resection of bladder tumor: Small Surgeon Doyle Alonso MD Anesthesia MAC and Local Indications She has recurrent low-grade transitional cell carcinoma. Presents today for resection. Understands risks of bleeding, infection, damage to surrounding organs, damage to the bladder. Agrees to proceed Findings Two small bladder tumors. In aggregate they were 2 cm Description of Procedure She was correctly identified. Informed consent obtained. She brought the operating room. She was given monitored anesthesia care. She was placed in dorsal lithotomy position. She was prepped draped sterile fashion. Time-out performed. Cystoscopy was performed. She had mild trabeculations. She had old scarring from previous tumor resection 2 small tumors were seen in the bladder. One on the right lateral wall. One on the left lateral wall. Both of these were removed and sent for pathologic analysis. The base of the tumors were generously fulgurated. There was no bleeding under low insufflation pressures. The bladder was drained. She was awakened transferred to PACU in stable condition. Estimated Blood Loss 1 Drains No Pathology Yes (Bladder tumor sent together) Complications No immediate complications Condition Stable
[2024-04-23 12:00] VITALS: BP 104/61; PULSE 78; RESP 14; O2SAT 98
[2024-04-23 12:25] VITALS: BP 127/79; PULSE 69; RESP 14
== END 2024-04-23 12:33 | disposition home or self-care (01) ==
PROVIDERS: PCP Internal Medicine; Visit Provider Urology
PROC: 0TBB8ZZ Excision of Bladder, Via Natural or Artificial Opening Endoscopic (ICD-10-PCS; CPT 52234; principal; 2024-04-23 11:00)
DX: N32.89 Other specified disorders of bladder (principal); E66.9 Obesity, unspecified; Z68.36 Body mass index [BMI] 36.0-36.9, adult
CPT/HCPCS: 52234; 88305; J0690; J2003; J2250; J2704; J3010; J7120

== ENCOUNTER 2024-05-07 10:47 | Outpatient (CLI) | payer MEDICARE, SELFPAY ==
--- NOTE | ~2024-05-07 | CT_ITS ---
EXAMINATION: CT sinus wo con DATE: 05/07/2024 10:59 INDICATION: Esophageal obstruction TECHNIQUE: Computed tomography (CT) of the paranasal sinuses was performed without intravenous contra st. The dose-length product was 258.77 mGy-cm. Automated exposure control and iterative reconstructio n technique were employed. COMPARISON: None FINDINGS: There is no significant mucosal thickening or air-fluid level. Leftward nasal septal deviat ion. Ostiomeatal units are patent. Mastoids are pneumatized. IMPRESSION: 1. No significant sinus disease. Reviewed, dictated and finalized at location B.
== END 2024-05-07 10:48 | disposition home or self-care (01) ==
LOC: MICIMG 10:48
PROVIDERS: PCP Internal Medicine; Visit Provider Otolaryngology
DX: J32.9 Chronic sinusitis, unspecified (principal); K22.2 Esophageal obstruction; K21.9 Gastro-esophageal reflux disease without esophagitis
CPT/HCPCS: 70486